=== PATIENT | female | born 1985 | race American Indian/Alaskan Native ===

== ENCOUNTER 2018-05-15 19:23 | Emergency (ER) | payer SELFPAY ==
[2018-05-15] MEDS ORDERED: TYLENOL ONE (19:39)
[2018-05-15] MEDS ORDERED: TYLENOL PO ONE (19:45)
[2018-05-15 20:11] LABS: Basophils % (Auto) 0.6 % (0.0-1.8); Eosinophils # (Auto) 0.1 K/mm3 (0.0-0.4); Eosinophils % (Auto) 0.8 % (0.0-4.3); Hematocrit 39.5 % (30.3-42.9); Hemoglobin 13.7 gm/dl (10.1-14.3); Lymphocytes % (Auto) 13.9 % (13.4-35.0); Mean Corpuscular HGB Conc 35 % (30-34); Mean Corpuscular Volume 82 fl (79-97); Monocytes # (Auto) 0.3 K/mm3 (0.0-0.8); Monocytes % (Auto) 4.6 % (0.0-7.3); Platelet Count 277 K/mm3 (140-440); Red Blood Count 4.84 M/mm3 (3.65-5.03)
[2018-05-15 20:12] LABS: Bacteria,Urine 1+ /HPF (Negative); Bilirubin,Urine NEG (Negative); Blood,Urine LG (Negative); Color,Urine Amber (Yellow); Mucus,Urine 3+ /HPF; Urobilinogen,Urine < 2.0 mg/dL (<2.0)
--- NOTE | 2018-05-15 22:05 | Ultrasound Report ---
FINAL REPORT PROCEDURE: Obstetrical ultrasound. TECHNIQUE: Real-time transabdominal sonography of the uterus, placenta, amniotic fluid, adnexa, and fetus was performed with image documentation. Measurements were obtained to determine age/size. M-mode Doppler was used to document heartbeat. CPT 59470 HISTORY: Abdominal pain, moderate vaginal bleeding. COMPARISON: No prior studies are available for comparison. FINDINGS: Image quality is limited because the patient's bladder was not distended. The uterus measures 9.4 syeda timeters x 4.7 centimeters x 6.3 centimeters. The myometrium is grossly normal. The endometrial echo complex is thickened measuring 14 millimeters. There is no evidence of an intrauterine gestational sa c. The right ovary is not visualized. The left ovary contains a cyst measuring 2.8 centimeters. There is a small amount of free fluid in the cul-de-sac. IMPRESSION: Left ovarian cyst. No evidence of an intrauterine .
--- NOTE | 2018-05-15 22:07 | Ultrasound Report ---
FINAL REPORT PROCEDURE: Transvaginal obstetrical ultrasound. TECHNIQUE: Real-time transvaginal sonography of the uterus, placenta, amniotic fluid, adnexa, and fe tus was performed with image documentation. Measurements were obtained to determine age/size. M -mode Doppler was used to document heartbeat. CPT 41779 HISTORY: Abdominal pain, vaginal bleeding. COMPARISON: No prior studies are available for comparison. FINDINGS: The uterine myometrium appears homogeneous. There are no focal uterine masses. The endometrial echo c omplex measures a maximum of 14 millimeters in the fundal portion. There is no evidence of an intraut erine gestational sac. There is free fluid in the cul-de-sac. Neither ovary is visualized. IMPRESSION: No evidence of an intrauterine . Free fluid in the cul-de-sac.
[2018-05-15 22:19] VITALS: BP 187/107
--- NOTE | 2018-05-15 22:21 | Emergency Department Report ---
ED HPI - General Chief complaint: Vaginal Bleeding Stated complaint: CRAMPING BLEEDING Time Seen by Provider: 05/15/18 20:36 Source: patient Mode of arrival: Ambulatory Limitations: No Limitations - History of Present Illness Initial comments: 32-year-old -[place] female reports that she is 6 weeks comes in for vaginal bleeding that started evening. Patient reports it is in the left lower abdominal cramping that started today. Patient is 4 para 1, 1 miscarriage and one . Patient reports she had a in 2017. She reports no saturation of pads. Admits to pelvic cramping has had no compl ications with her last no past medical history. She reports that she has constant pelvic cramping 9 out of 10. MD Complaint: abdominal pain, vaginal bleeding Location: pelvis Radiation: LLQ Severity: severe Severity scale (0 -10): 9 Quality: cramping Consistency: constant Improves with: none Worsens with: none Associated symptoms: vaginal bleeding Vaginal bleeding: light :: Yes Number of weeks : 6 OB History - Current : no complications OB History - Previous Pregnancies: no complications - Related Data : 4 Para: 1 Ab: 1 Previous Rx's Medication Instructions Recorded Last Taken Type Labetalol [Normodyne TAB] 100 mg PO BID #60 tablet 05/15/18 Unknown Rx metroNIDAZOLE [Flagyl TAB] 250 mg PO Q8HR #21 tablet 05/15/18 Unknown Rx Allergies Allergy/AdvReac Type Severity Reaction Status Date / Time Penicillins Allergy Hives Verified 05/15/18 19:43 ED Review of Systems ROS: Stated complaint: CRAMPING BLEEDING Other details as noted in HPI Comment: All other systems reviewed and negative Gastrointestinal: abdominal pain Genitourinary: other ED Past Medical Hx - Past Medical History Previous Medical History?: No - Surgical History Past Surgical History?: Yes Additional Surgical History: X 1. - Social History Smoking Status: Never Smoker Substance Use Type: None - Medications Home Medications: Home Medications Medication Instructions Recorded Confirmed Last Taken Type Labetalol [Normodyne TAB] 100 mg PO BID #60 tablet 05/15/18 Unknown Rx metroNIDAZOLE [Flagyl TAB] 250 mg PO Q8HR #21 tablet 05/15/18 Unknown Rx ED Physical Exam - General Limitations: No Limitations General appearance: alert, in no apparent distress - Head Head exam: Present: atraumatic, normocephalic - Eye Eye exam: Present: normal appearance - ENT ENT exam: Present: mucous membranes moist - Neck Neck exam: Present: normal inspection - Respiratory Respiratory exam: Present: normal lung sounds bilaterally. Absent: respiratory distress - Cardiovascular Cardiovascular Exam: Present: regular rate, normal rhythm. Absent: systolic murmur, diastolic murmur, rubs, gallop - GI/Abdominal GI/Abdominal exam: Present: soft, normal bowel sounds - External exam: Present: normal external exam Speculum exam: Present: vaginal bleeding Bi-manual exam: Present: normal bi-manual exam - Extremities Exam Extremities exam: Present: normal inspection - Back Exam Back exam: Present: normal inspection - Neurological Exam Neurological exam: Present: alert, oriented X3 - Psychiatric Psychiatric exam: Present: normal affect, normal mood - Skin Skin exam: Present: warm, dry, intact, normal color. Absent: rash ED Course Vital Signs 05/15/18 05/15/18 05/15/18 19:29 19:42 22:19 Temperature 99.2 F 99.2 F Pulse Rate 96 H 96 H 69 Respiratory 18 16 17 Rate Blood Pressure 191/112 162/100 187/107 [Right] O2 Sat by Pulse 100 100 99 Oximetry ED Medical Decision Making - Lab Data Result diagrams: 05/15/18 20:00 - Radiology Data Radiology results: report reviewed FINAL REPORT PROCEDURE: Transvaginal obstetrical ultrasound. TECHNIQUE: Real-time transvaginal sonography of the uterus, placenta, amniotic fluid, adnexa, and fetus was performed with image documentation. Measurements were obtained to determine age/size. M-mode Doppler was used to document heartbeat. CPT 67638 HISTORY: Abdominal pain, vaginal bleeding. COMPARISON: No prior studies are available for comparison. FINDINGS: The uterine myometrium appears homogeneous. There are no focal uterine masses. The endometrial echo complex measures a maximum of 14 millimeters in the fundal portion. There is no evidence of an intrauterine gestational sac. There is free fluid in the cul-de-sac. Neither ovary is visualized. IMPRESSION: No evidence of an intrauterine . Free fluid in the cul-de-sac. Transcribed By: MRM Dictated By: SOLOMON DONALDSON MD Electronically Authenticated By: SOLOMON DONALDSON MD Signed Date/Time: 05/15/182206 DD/ 09 TD/TT: 05/15/182209 - Medical Decision Making Patient has been evaluated by this provider fast track. HCG was ordered which was 1400, ultrasound OB with transvaginal was ordered Wet prep showed patient had bacterial vaginosis greater than 20% clue cells. Vaginal vault examination shows maroon color blood. Discussed with patient she needs to follow up in 2 days either with [facility] or here in the emergency room to have her repeat hCG as her ultrasound did not show an intrauterine gestation sac. Patient verbalizes understanding. Critical care attestation.: If time is entered above; I have spent that time in minutes in the direct care of this critically ill patient, excluding procedure time. ED Disposition Clinical Impression: Bacterial vaginosis, Vaginal bleeding affecting early , Threatened miscarriage in early , HTN, goal below 130/80 Disposition: - TO HOME OR SELFCARE Is pt being admited?: No Does the pt Need Aspirin: No Condition: Stable Instructions: Bacterial Vaginosis (ED), Threatened Miscarriage (ED), Hypertension (ED) Additional Instructions: Please follow up with [facility] or the emergency room in 2 days to have her repeat hCG. Prescriptions: Labetalol [Normodyne TAB] 100 mg PO BID #60 tablet metroNIDAZOLE [Flagyl TAB] 250 mg PO Q8HR #21 tablet Referrals: [facility] [Provider Group] - 3-5 Days Forms: STI Treatment and Prevention, Work/School Release Form(ED)
== END 2018-05-15 23:15 | disposition home or self-care (01) ==
LOC: ED 19:23
DX: O20.0 Threatened abortion (principal); O23.591 Infection of other part of genital tract in pregnancy, first trimester; O16.1 Unspecified maternal hypertension, first trimester; Z3A.01 Less than 8 weeks gestation of pregnancy; Z88.0 Allergy status to penicillin
CPT/HCPCS: 36415; 76801; 76817; 81001; 84702; 85025; 86850; 86900; 86901; 87210